=== PATIENT | female | born 1955 | race African-American/Black ===

== ENCOUNTER 2017-02-19 18:55 | Emergency (ER) | payer OTHER ==
[~2017-02-19] VITALS: Ht 160 cm; Wt 76.0 kg
[~2017-02-19 18:55] MED LIST: LEVO100T82 PO; LOSA50TA6 PO; LOVA20TA PO; METF500T4 PO
[2017-02-19 19:03] VITALS: Ht 160 cm; Wt 76.0 kg
[2017-02-19] MEDS ORDERED: ONDANSETRON 4 MG INJ IV STA (20:36)
[2017-02-19] MEDS ORDERED: morphine 4 MG/ML VIAL IV STA (20:36)
--- NOTE | 2017-02-19 21:40 | RADRPT ---
PROCEDURE: XR Chest. CLINICAL INDICATION: Chest pain. TECHNIQUE: Single frontal view of the chest was obtained COMPARISON: 06/24/2016 FINDINGS: The heart and mediastinum are within normal limits. The thoracic aorta is tortuous. The lungs are clear. There is no pleural effusion or pneumothorax. IMPRESSION: No acute disease. RPTAT: [facility] Physician Preston Date Time Electronically viewed and signed by Hank Gunn Physician on 02/19/2017 21:39 RS/
[2017-02-19 22:12] LABS: BASOPHILS % 0.5 % (0.0-2.0); EOSINOPHILS # 0.2 10^3/ul (0.0-0.5); EOSINOPHILS % 2.5 % (0.0-7.0); HEMATOCRIT 40.6 % (37.0-47.0); HEMOGLOBIN 13.8 g/dl (12.0-16.0); LYMPHOCYTES % 48.8 % (15.0-51.0); MEAN CORPUSCULAR HEMOGLOBIN 32.8 pg (29.0-33.0); MEAN CORPUSCULAR VOLUME 96.4 fl (82.0-101.0); MONOCYTE # 0.5 10^3/ul (0.3-0.9); MONOCYTES % 6.1 % (0.0-11.0); NEUTROPHIL # 3.5 10^3/ul (1.6-7.5); NEUTROPHILS % 41.9 % (39.0-77.0); PLATELET COUNT 273 10^3/UL (140-415); RED BLOOD COUNT 4.21 10^6/ul (4.20-5.40); RED CELL DISTRIBUTION WIDTH 13.2 % (11.5-14.5); WHITE BLOOD COUNT 8.2 10^3/ul (4.8-10.8)
[2017-02-19 22:29] LABS: INR 0.79; PT RATIO 0.9
[2017-02-19 22:30] LABS: PARTIAL THROMBOPLASTIN TIME 27.9 Sec (25.0-35.0)
[2017-02-19 22:32] LABS: ANION GAP 17 (8-16); BLOOD UREA NITROGEN 20 mg/dl (7-20); CARBON DIOXIDE 28 mmol/L (21-31); CHLORIDE 102 mmol/L (97-110); CREATININE 1.04 mg/dl (0.44-1.00); GLUCOSE 94 mg/dl (70-220); POTASSIUM 4.1 mmol/L (3.5-5.1); SODIUM 143 mmol/L (135-144)
[2017-02-19 22:50] LABS: TROPONIN-I < 0.012 ng/ml (0.00-0.12)
[2017-02-19] MEDS ORDERED: SOD CHLORIDE 0.9% 100 ML ONE (22:52)
[2017-02-19] MEDS ORDERED: IOHEXOL 100 ML ONE (22:52)
[2017-02-19] MEDS ORDERED: IOHEXOL 350MG/ML 50 ML BTL ONE (22:53)
--- NOTE | 2017-02-20 00:22 | RADRPT ---
PROCEDURE: CTA Chest, Abdomen and Pelvis with contrast. CLINICAL INDICATION: Back pain rule out aneurysm TECHNIQUE: CTA scan of the chest, abdomen, and pelvis with contrast was performed on a multi-detec [facility] high-resolution CT scanner. The patient was scanned following the intravenous administration of 125 cc of Omnipaque 350 intravenous contrast. Coronal and sagittal reformatted images were obtaine d from the axial source images. No 3-D/maximum intensity projection reformatted imaging was perform ed. Images were reviewed on a high-resolution PACS workstation. The total exam CTDI equals 12.03 mGy and the total exam DLP equals 816.44 mGy-cm. One or more the following dose reduction techniques were utilized: Automated exposure control, adjus tment of the mA and / or kV according to patient's size, or use of iterative reconstruction techniqu e. COMPARISON: Chest x-ray of 02/19/2017 FINDINGS: In the chest, small amount of calcification in the aortic arch. No thoracic aortic aneurysm or diss ection is seen. No abnormality of the origins of the great vessels is seen. The left common carotid artery arises from the right brachiocephalic artery. The left vertebral artery arises directly fro m the aortic arch. No filling defects suggestive of emboli are seen in main, lobar or segmental pul monary arteries. No enlarged mediastinal lymph nodes or pleural effusion is seen. Emphysematous salvador nges are seen particularly paraseptal emphysematous changes in the upper lobes. Mild dependent atel ectasis in posterior lungs. Degenerative changes in visualized lower cervical spine and thoracic spi ne. In the abdomen and pelvis, no abdominal aortic aneurysm or dissection is seen. There is a small am ount of calcification in the abdominal aorta. No significant stenosis is seen in the celiac, superi or mesenteric, 2 right renal, single left renal or inferior mesenteric arteries. There is a small u mbilical hernia containing fat only. No abnormality is seen in the gallbladder. The length of the r ight lobe of the liver equals 20.2 cm which appears to be secondary to Reidel's lobe, normal variant . Nonspecific minimal dilatation of the extrahepatic bile duct with diameter approximately 8 mm and minimal dilatation of central intrahepatic bile ducts. No choledocholithiasis is seen on CTA. No a bnormality seen in the spleen, pancreas, adrenals or kidneys. No definite abnormality of the stomac h is seen. No ascites is seen. No definite abnormality of the uterus or adnexal regions is seen on CTA. No abnormality of the bladder is seen. Diverticula in sigmoid, descending, transverse and ascending colon. There is no specific evidence of acute diverticulitis seen. There is an unremarka ble appendix. No dilated small bowel loops are seen. No enlarged lymph nodes are seen in the abdom en or pelvis. Mild osteoarthrosis at hips. Degenerative changes in lumbar spine IMPRESSION: No aortic aneurysm or dissection is seen. Nonspecific minimal dilatation of the extrahepatic bile d uct and central intrahepatic bile ducts. Colonic diverticulosis. No specific evidence of acute dive rticulitis seen. Please see above. RPTAT: HJES .Jose Manuel Smith MD, MD Date Time Electronically viewed and signed by .Jose Manuel Smith MD, on 02/20/2017 00:22 .S/
[2017-02-20] MEDS ORDERED: HYDR-906 PO (00:31)
[2017-02-20 00:48] VITALS: BP 116/70; PULSE 50; RESP 16
--- NOTE | 2017-02-20 00:52 | ERD ---
ER Documentation Chief Complaint Date/Time DATE: 02/20/17 TIME: 00:37 Chief Complaint Left Shoulder pain feels heavy HPI 62-year-old female complaining of pain in the posterior left shoulder 2 days. Patient stated the pain is sharp and constant, it had a sudden onset. She took ibuprofen 800 mg this evening, but it did not help with the pain. Pain is not worse with movement. Patient has history of diabetes and hypertension. She smokes daily. Denies injuries to the left shoulder. Denies heavy lifting or overhead reaching. Denies fever or chills. Denies chest pain. Denies shortness of breath. Denies abdominal pain, vomiting, or diarrhea. ROS All systems reviewed and are negative except as per history of present illness. Medications Home Meds Active Scripts Hydrocodone/Acetaminophen (Shepherd 5-325 Tablet) 1 Each Tablet, 1 TAB PO Q6H Y for PAIN, #15 TAB Prov:PEDRO PABLO NATARAJAN THREAD SPO[employer]ER 02/20/17 Reported Medications Lovastatin* (Lovastatin*) 20 Mg Tablet, 20 MG PO HS, TAB 06/24/16 Losartan Potassium* (Losartan Potassium*) 50 Mg Tablet, 50 MG PO DAILY, TAB 06/24/16 Levothyroxine Sodium* (Levoxyl*) 100 Mcg Tablet, 100 MCG PO BEFORE BREAKFAST, # 30 TAB 06/24/16 Metformin Hcl* (Metformin Hcl*) 500 Mg Tablet, 500 MG PO WITH BREAKFAST, #30 TAB 06/24/16 Allergies Allergies: Coded Allergies: No Known Allergies (Verified Allergy, Mild, 06/24/16) shellfish derived (Verified Allergy, Unknown, 06/24/16) shrimp (Verified Allergy, Unknown, 06/24/16) Uncoded Allergies: SHRIMP, CRAB, LOBSTER (Allergy, Severe, 02/12/16) SWELLING, SOB PMhx/Soc History of Surgery: Yes (tonsils) Anesthesia Reaction: No Hx Neurological Disorder: No Hx Respiratory Disorders: Yes (asthma) Hx Cardiac Disorders: Yes (HTN, tortuous aorta) Hx Psychiatric Problems: Yes (Schizophrenia) Hx Miscellaneous Medical Probl: Yes (DM II hyperlipidemia) Hx Alcohol Use: Yes (occassionaly) Hx Substance Use: No Hx Tobacco Use: Yes (4-5 sticks/day , since yesterday) Smoking Status: Current every day smoker Physical Exam Vitals Vital Signs Date Time Temp Pulse Resp B/P Pulse Ox O2 Delivery O2 Flow Rate FiO2 02/19/17 19:03 98.4 72 24 106/73 96 Physical Exam General: Well-developed, well-nourished, conscious and coherent, in no distress Skin: Warm and dry without rash, good texture and turgor Head: Normocephalic without evidence of trauma Eyes: Sclera and conjunctivae normal; pupils equal, round, and reactive to light; extraocular movements are intact Neck: Supple without meningismus or adenopathy. Carotids are equal. Trachea midline. No bruits or JVD Chest: Normal AP diameter. Good expansion without retractions. Nontender. Lungs are clear to auscultate bilaterally with good tidal volume Heart: Regular rate and rhythm. No murmur, rub, or gallops heard. Radial pulse stronger on the right than on the left. Abdomen: Soft and nontender without masses, guarding, or rebound. Bowel sounds are active. No hepatosplenomegaly Back: Without spinal or CVA tenderness. No tenderness over the area of the pain. Extremities: Full range of motion of all extremities.. Good strength bilaterally. No clubbing, cyanosis, or edema. Peripheral pulses are intact. Sensation intact Neuro: Alert and oriented 4, GCS 15. Cranial nerves grossly intact. Motor and sensory exams nonfocal. Moves all extremities. Speech clear. Gait normal Result Diagram: 02/19/17209902/19/17 2100 Results 24 hrs Laboratory Tests Test 02/19/17 21:00 White Blood Count 8.210^3/ul Red Blood Count 4.2110^6/ul Hemoglobin 13.8g/dl Hematocrit 40.6% Mean Corpuscular Volume 96.4fl Mean Corpuscular Hemoglobin 32.8pg Mean Corpuscular Hemoglobin Concent 34.0g/dl Red Cell Distribution Width 13.2% Platelet Count 90057^3/UL Mean Platelet Volume 12.0fl Neutrophils % 41.9% Lymphocytes % 48.8% Monocytes % 6.1% Eosinophils % 2.5% Basophils % 0.5% Nucleated Red Blood Cells % 0.0/100WBC Neutrophils # 3.510^3/ul Lymphocytes # 4.010^3/ul Monocytes # 0.510^3/ul Eosinophils # 0.210^3/ul Basophils # 0.010^3/ul Nucleated Red Blood Cells # 0.010^3/ul Prothrombin Time 11.0Sec Prothrombin Time Ratio 0.9 INR International Normalized Ratio 0.79 Activated Partial Thromboplast Time 27.9Sec Sodium Level 143mmol/L Potassium Level 4.1mmol/L Chloride Level 102mmol/L Carbon Dioxide Level 28mmol/L Anion Gap 17 Blood Urea Nitrogen 20mg/dl Creatinine 1.04mg/dl Glucose Level 94mg/dl Calcium Level 10.0mg/dl Troponin I < 0.012ng/ml Current Medications Medications (Trade) Dose Ordered Sig/Jesus Route PRN Reason Start Time Stop Time Status Last Admin Dose Admin Morphine Sulfate (morphine) 4 mg ONCE STAT IV 02/19/17 20:36 02/19/17 20:39 DC 02/19/17 21:13 Ondansetron HCl (Zofran Inj) 4 mg ONCE STAT IV 02/19/17 20:36 02/19/17 20:39 DC 02/19/17 21:13 IV Flush 10 ml 10 ml STK-MED ONCE .ROUTE 02/19/17 22:52 02/19/17 22:53 DC 02/19/17 23:22 Sodium Chloride 100 ml @ ud STK-MED ONCE .ROUTE 02/19/17 22:52 02/19/17 22:53 DC 02/19/17 23:23 Iohexol (Omnipaque) 100 ml @ ud STK-MED ONCE .ROUTE 02/19/17 22:52 02/19/17 22:53 DC 02/19/17 23:22 Iohexol (Omnipaque 350mg/ ml) 50 ml STK-MED ONCE .ROUTE 02/19/17 22:53 02/19/17 22:54 DC 02/19/17 23:23 PROCEDURE: XR Chest. CLINICAL INDICATION: Chest pain. TECHNIQUE: Single frontal view of the chest was obtained COMPARISON: 06/24/2016 FINDINGS: The heart and mediastinum are within normal limits. The thoracic aorta is tortuous. The lungs are clear. There is no pleural effusion or pneumothorax. IMPRESSION: No acute disease. RPTAT: [facility] Physician Preston Date Time Electronically viewed and signed by Physician Preston on 02/19/2017 21:39 RS/ CC: PEDRO PABLO NATARAJAN NP ROCEDURE: CTA Chest, Abdomen and Pelvis with contrast. CLINICAL INDICATION: Back pain rule out aneurysm TECHNIQUE: CTA scan of the chest, abdomen, and pelvis with contrast was performed on a multi-detector high-resolution CT scanner. The patient was scanned following the intravenous administration of 125 cc of Omnipaque 350 intravenous contrast. Coronal and sagittal reformatted images were obtained from the axial source images. No 3-D/maximum intensity projection reformatted imaging was performed. Images were reviewed on a high-resolution PACS workstation. The total exam CTDI equals 12.03 mGy and the total exam DLP equals 816.44 mGy-cm. One or more the following dose reduction techniques were utilized: Automated exposure control, adjustment of the mA and / or kV according to patient's size, or use of iterative reconstruction technique. COMPARISON: Chest x-ray of 02/19/2017 FINDINGS: In the chest, small amount of calcification in the aortic arch. No thoracic aortic aneurysm or dissection is seen. No abnormality of the origins of the great vessels is seen. The left common carotid artery arises from the right brachiocephalic artery. The left vertebral artery arises directly from the aortic arch. No filling defects suggestive of emboli are seen in main, lobar or segmental pulmonary arteries. No enlarged mediastinal lymph nodes or pleural effusion is seen. Emphysematous changes are seen particularly paraseptal emphysematous changes in the upper lobes. Mild dependent atelectasis in posterior lungs. Degenerative changes in visualized lower cervical spine and thoracic spine. In the abdomen and pelvis, no abdominal aortic aneurysm or dissection is seen. There is a small amount of calcification in the abdominal aorta. No significant stenosis is seen in the celiac, superior mesenteric, 2 right renal, single left renal or inferior mesenteric arteries. There is a small umbilical hernia containing fat only. No abnormality is seen in the gallbladder. The length of the right lobe of the liver equals 20.2 cm which appears to be secondary to Reidel's lobe, normal variant. Nonspecific minimal dilatation of the extrahepatic bile duct with diameter approximately 8 mm and minimal dilatation of central intrahepatic bile ducts. No choledocholithiasis is seen on CTA. No abnormality seen in the spleen, pancreas, adrenals or kidneys. No definite abnormality of the stomach is seen. No ascites is seen. No definite abnormality of the uterus or adnexal regions is seen on CTA. No abnormality of the bladder is seen. Diverticula in sigmoid, descending, transverse and ascending colon. There is no specific evidence of acute diverticulitis seen. There is an unremarkable appendix. No dilated small bowel loops are seen. No enlarged lymph nodes are seen in the abdomen or pelvis. Mild osteoarthrosis at hips. Degenerative changes in lumbar spine IMPRESSION: No aortic aneurysm or dissection is seen. Nonspecific minimal dilatation of the extrahepatic bile duct and central intrahepatic bile ducts. Colonic diverticulosis. No specific evidence of acute diverticulitis seen. Please see above. RPTAT: HJES .Jose Manuel Smith MD, MD Date Time Electronically viewed and signed by .Jose Manuel Smith MD, MD on 02/20/2017 00:21 .S/ CC: PEDRO PABLO NATARAJAN. THREAD SPOOLER Procedures/MDM 62-year-old female with multiple comorbidities present ED with posterior left shoulder pain 2 days. She does not have any tenderness over the area pain, she has full range of motion of the affected shoulder. I doubt the pain is caused by musculoskeletal issues. Because of patient's comorbidities, cardiac workup was obtained. Chest x-ray: The heart and mediastinum are within normal limits. The thoracic aorta is tortuous. The lungs are clear. There is no pleural effusion or pneumothorax. No significant change in chest x-ray compared to previous ones. EKG: Marked sinus bradycardia with heart rate 47 bpm, normal axis. No ST segment elevation or depression. No ectopic beats. No QT prolongation. No other EKG abnormalities. EKG read by Dr. Saenz. EKG was compared to the previous one on 12/31/2015, no significant difference. CBC, BMP, PT/PTT are unremarkable. Troponin is negative. I doubt acute DC, ACS , pneumonia, pneumothorax, PE. Because of the usual appearance of patient's thoracic aorta on chest x-ray, and her radial pulse differential, as well as her blood pressure differential from the bilateral upper extremities, I am concerned about possible aortic aneurysm. I consulted with Dr. Saenz, CT angiography of the thorax and abdomen was obtained. CT angiography is negative for aortic aneurysm or dissection. It is uncertain the cause of patient's pain this time. Patient was given morphine 4 mg IV and Zofran 4 mg IV in the ED. Patient reports resolution of pain after morphine. Patient appears well, stable for discharge and outpatient management. Medical decision making shared with patient and family. Education provided to patient and family. Patient and family expressed understanding of the plan. Medications on discharge: Shepherd. Follow-up: Primary care provider in 2-3 days or return to ED if worse. Disclaimer: Inadvertent spelling and grammatical errors are likely due to EHR/ dictation software use and do not reflect on the overall quality of patient care. Also, please note that the electronic time recorded on this note does not necessarily reflect the actual time of the patient encounter. Departure Diagnosis: Primary Impression: Upper back pain on left side Condition: Stable Patient Instructions: Shoulder Pain (Uncertain Cause) Additional Instructions: Call your primary care doctor TOMORROW for an appointment during the next 2-3 days.See the doctor sooner or return here if your condition worsens before your appointment time. PEDRO PABLO NATARAJAN NP Feb 20, 2017 00:48
== END 2017-02-20 00:49 | disposition home or self-care (01) ==
LOC: FTE 18:55
DX: M54.6 Pain in thoracic spine (principal); J45.909 Unspecified asthma, uncomplicated; I10 Essential (primary) hypertension; E11.9 Type 2 diabetes mellitus without complications; F17.210 Nicotine dependence, cigarettes, uncomplicated; R07.9 Chest pain, unspecified; Z79.84 Long term (current) use of oral hypoglycemic drugs
CPT/HCPCS: 71010; 71275; 75635; 80048; 84484; 85025; 85610; 85730; 93005; J2270; J2405; Q9967; 36415; 96374; 96375

== ENCOUNTER 2017-11-27 20:42 | Emergency (ER) | END 2017-11-28 01:09 | disposition home or self-care (01) ==

== ENCOUNTER 2018-03-21 12:20 | Emergency (ER) | END 2018-03-21 14:22 | disposition home or self-care (01) ==